=== PATIENT | female | born 1980 | race Caucasian/White ===

== ENCOUNTER 2016-06-29 21:59 | Emergency (ER) | payer OTHER ==
[2016-06-29 22:08] VITALS: BP 126/83; PULSE 77; TEMP 98.1; BMI 22.6
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
== END 2016-06-30 | disposition left against medical advice (07) ==
LOC: JER 21:59
DX: Z04.41 Encounter for examination and observation following alleged adult rape (principal)
CPT/HCPCS: 99281-25